=== PATIENT | female | born 1950 | race Caucasian/White ===

== ENCOUNTER 2019-03-18 09:55 | Inpatient (IN) ==
[2019-03-18 10:32] LABS: Bilirubin,Urine Negative (Negative); Blood,Urine Negative (Negative); Clarity,Urine Clear (Clear); Color,Urine Yellow (Yellow); Glucose,Urine (UA) Normal (Normal); Ketones,Urine Negative (Negative); Leukocyte Esterase,Urine Negative (Negative); Nitrite,Urine Negative (Negative); Protein,Urine Negative (Neg-Trace); Specific Gravity,Urine 1.011 (1.010-1.025); Urobilinogen,Urine Normal (Normal)
[2019-03-18 10:35] LABS: Basophils # 0.1 K/mcL (0.0-0.2); Basophils % 1.2 %; Eosinophils # 0.1 K/mcL (0.0-0.6); Eosinophils % 1.8 %; Hematocrit 46.1 % (35.3-44.9); Hemoglobin 14.7 g/dL (11.5-15.4); Immature Granulocytes % 0.4 % (0-4); Lymphocytes # 2.1 K/mcL (0.6-4.6); Lymphocytes % 31.3 %; Mean Corpuscular HGB Conc 31.9 g/dL (31.6-35.5); Mean Corpuscular Hemoglobin 31.5 pg (28.0-33.3); Mean Corpuscular Volume 98.9 fL (83.0-100.0); Mean Platelet Volume 11.4 fL (9.4-12.4); Monocytes # 0.5 K/mcL (0.0-1.3); Monocytes % 6.7 %; Neutrophils # 3.9 K/mcL (1.6-8.9); Platelet Count 349 K/mcL (140-400); Red Blood Count 4.66 M/mcL (3.82-4.97); Red Cell Distribution Width 12.6 % (11.5-14.5); Segmented Neutrophils % 58.6 %; White Blood Count 6.7 K/mcL (4.3-11.1)
[2019-03-18] MEDS ORDERED: Hyoscyamine 0.5 MG/ML MLS IVP ONE (10:37)
[2019-03-18] MEDS ORDERED: *HR* FentaNYL (PF) 100 MCG/2 ML VIAL IVP ONE (10:47)
[2019-03-18] MEDS ORDERED: Ondansetron 4 MG/2 ML VIAL IVP ONE (10:47)
[2019-03-18 10:53] LABS: Alanine Aminotransferase 22 Units/L (7-52); Albumin 4.6 g/dL (3.5-5.7); Albumin/Globulin Ratio 1.5 (1.1-2.2); Alkaline Phosphatase 73 Units/L (34-104); Aspartate Amino Transferase 27 Units/L (13-39); BUN/Creatinine Ratio 14 (6-26); Bilirubin,Direct 0.1 mg/dL (0.0-0.2); Bilirubin,Indirect 0.3 mg/dL (0.0-1.0); Bilirubin,Total 0.4 mg/dL (0.3-1.0); Blood Urea Nitrogen 11 mg/dL (8-23); Calcium 9.8 mg/dL (8.6-10.3); Carbon Dioxide 30 mEq/L (23-29); Chloride 105 mEq/L (98-107); Globulin 3.1 g/dL (2.4-3.5); Glucose 111 mg/dL (70-105); Lipase 24 Units/L (11-82); Osmolality,Calculated 296 (280-300); Potassium 3.7 mEq/L (3.5-5.1); Sodium 143 mEq/L (136-145); Total Protein 7.7 g/dL (6.4-8.9); Troponin I < 0.03 ng/mL (< 0.04); eGFR For African Americans > 60 (> 60); eGFR For Non-African Americans > 60 (> 60)
[2019-03-18] MEDS ORDERED: Loratadine 10 MG TABLET PO PRN (13:15)
[2019-03-18] MEDS ORDERED: NON-FORMULARY MEDICATION 1 EACH EACH (Zolmitriptan [Zomig] 5 MG) PO PRN (13:15)
[2019-03-18] MEDS: Ondansetron 4 MG/2 ML VIAL IVP PRN (13:54)
[2019-03-18] MEDS: Ketorolac 15 MG/ML VIAL IVP PRN ×2 (13:54→20:17)
[2019-03-18] MEDS: Psyllium 1 PACKET POWD.PACK PO SCH ×2 (18:04→20:17)
[2019-03-18] MEDS ORDERED: NON-FORMULARY MEDICATION 1 EACH EACH (Omega-3/Dha/Epa/Fish Oil [Fish Oil 1,000 Mg Softgel] PO SCH (21:00)
[2019-03-19] MEDS: Ketorolac 15 MG/ML VIAL IVP PRN ×2 (01:48→06:47)
[2019-03-19 06:18] LABS: Basophils # 0.1 K/mcL (0.0-0.2); Basophils % 0.9 %; Eosinophils # 0.1 K/mcL (0.0-0.6); Hematocrit 45.5 % (35.3-44.9); Hemoglobin 15.3 g/dL (11.5-15.4); Immature Granulocytes % 0.3 % (0-4); Lymphocytes % 20.8 %; Mean Corpuscular HGB Conc 33.6 g/dL (31.6-35.5); Mean Corpuscular Hemoglobin 31.9 pg (28.0-33.3); Monocytes # 0.6 K/mcL (0.0-1.3); Neutrophils # 6.8 K/mcL (1.6-8.9); Platelet Count 335 K/mcL (140-400); Red Blood Count 4.79 M/mcL (3.82-4.97); Red Cell Distribution Width 12.6 % (11.5-14.5); White Blood Count 9.6 K/mcL (4.3-11.1)
[2019-03-19 06:47] LABS: BUN/Creatinine Ratio 13 (6-26); Blood Urea Nitrogen 12 mg/dL (8-23); Calcium 9.7 mg/dL (8.6-10.3); Carbon Dioxide 27 mEq/L (23-29); Chloride 101 mEq/L (98-107); Glucose 130 mg/dL (70-105); Osmolality,Calculated 292 (280-300); Potassium 4.1 mEq/L (3.5-5.1); Sodium 140 mEq/L (136-145); eGFR For African Americans > 60 (> 60); eGFR For Non-African Americans > 60 (> 60)
[2019-03-19] MEDS ORDERED: Lidocaine Jelly 11 ml Syringe MM STA (07:55)
[2019-03-19] MEDS ORDERED: MAGNESIUM PO SCH (09:00)
[2019-03-19] MEDS ORDERED: NON-FORMULARY MEDICATION 1 EACH EACH (Glucosamine Sulfate Dipot Chlr [Glucosamine] 1,000 M PO SCH (09:00)
[2019-03-19] MEDS ORDERED: MOM Conc 10 ML UD.LIQ PO SCH (09:00)
[2019-03-19] MEDS: Psyllium 1 PACKET POWD.PACK PO SCH ×3 (09:07→19:53)
[2019-03-19] MEDS: Thyroid (Amour) 30 MG TABLET PO SCH (09:07)
[2019-03-19] MEDS: Ondansetron 4 MG/2 ML VIAL IVP PRN (11:21)
[2019-03-19] MEDS: Metoclopramide 10 MG/2 ML VIAL IVP SCH ×3 (11:21→17:54)
[2019-03-19] MEDS: Ringers Solution, Lactated 1,000 ML IVC SCH (17:54)
[2019-03-20] MEDS: Metoclopramide 10 MG/2 ML VIAL IVP SCH ×2 (00:38→05:56)
[2019-03-20] MEDS: Ondansetron 4 MG/2 ML VIAL IVP PRN ×2 (02:05→10:06)
[2019-03-20] MEDS: Ringers Solution, Lactated 1,000 ML IVC SCH ×2 (05:56→20:18)
[2019-03-20] MEDS: Ketorolac 15 MG/ML VIAL IVP PRN ×3 (06:09→20:18)
[2019-03-20] MEDS: Thyroid (Amour) 30 MG TABLET PO SCH (11:55)
[2019-03-20] MEDS: Psyllium 1 PACKET POWD.PACK PO SCH ×3 (11:55→19:15)
[2019-03-20] MEDS ORDERED: *HR* LORazepam 2 MG/ML VIAL ONE (16:29)
[2019-03-20] MEDS ORDERED: *HR* LORazepam 0.5 MG TABLET PO PRN (17:22)
[2019-03-20] MEDS ORDERED: *HR* LORazepam 2 MG/ML VIAL IVP ONE (20:17)
[2019-03-21 05:01] LABS: Basophils % 1.2 %; Eosinophils % 0.3 %; Hematocrit 49.3 % (35.3-44.9); Immature Granulocytes % 0.3 % (0-4); Lymphocytes # 0.8 K/mcL (0.6-4.6); Lymphocytes % 23.4 %; Mean Corpuscular HGB Conc 32.5 g/dL (31.6-35.5); Mean Corpuscular Hemoglobin 31.3 pg (28.0-33.3); Mean Corpuscular Volume 96.3 fL (83.0-100.0); Mean Platelet Volume 11.7 fL (9.4-12.4); Monocytes # 0.5 K/mcL (0.0-1.3); Platelet Count 194 K/mcL (140-400); Red Blood Count 5.12 M/mcL (3.82-4.97); Red Cell Distribution Width 12.9 % (11.5-14.5); Segmented Neutrophils % 58.8 %
[2019-03-21 05:15] LABS: White Blood Count 3.4 K/mcL (4.3-11.1)
[2019-03-21 05:40] LABS: Potassium 4.2 mEq/L (3.5-5.1)
[2019-03-21] MEDS ORDERED: Naloxone 0.4 MG/ML INJ IVP PRN ×2 (07:37→19:53)
[2019-03-21] MEDS ORDERED: Ringers Solution, Lactated 1,000 ML IVC SCH (07:45)
[2019-03-21 08:00] LABS: Bilirubin,Urine Small (Negative); Blood,Urine Negative (Negative); Clarity,Urine Cloudy (Clear); Color,Urine Dark Yellow (Yellow); Glucose,Urine (UA) Normal (Normal); Ketones,Urine Trace mg/dL (Negative); Leukocyte Esterase,Urine Negative (Negative); Nitrite,Urine Negative (Negative); Protein,Urine 30 mg/dL (Neg-Trace); Specific Gravity,Urine > 1.030 (1.010-1.025); Urobilinogen,Urine Normal (Normal)
[2019-03-21 08:03] LABS: Bacteria,Urine None Seen per hpf (None-Few); Squamous Epithelial Cell,Urine Many per lpf (None-Few); WBC,Urine 0-3 per hpf (0-3)
[2019-03-21] MEDS ORDERED: Acetaminophen IV 1,000 MG/100 ML INFUS..BTL IVPB ONE (12:49)
[2019-03-21] MEDS: 0.9 % Sodium Chloride 1,000 ML IVC SCH ×3 (13:13→20:26)
[2019-03-21] MEDS: Ondansetron 4 MG/2 ML VIAL IVP PRN (14:59)
[2019-03-21] MEDS: Piperacillin/Tazobactam 3.375 GM in 0.9 % Sodium Chloride Mini Bag 100 ML IVPB SCH ×2 (15:14→15:15)
[2019-03-21] MEDS ORDERED: *HR* Midazolam HCl 2 MG/2 ML VIAL ONE (16:47)
[2019-03-21] MEDS ORDERED: *HR* Succinylcholine 200 MG/10 ML VIAL IVP ONE (16:47)
[2019-03-21] MEDS ORDERED: *HR* Rocuronium Bromide 50 MG/5 ML VIAL ONE (16:47)
[2019-03-21] MEDS ORDERED: *HR* Propofol 200 MG/20 ML VIAL IVP ONE (16:47)
[2019-03-21] MEDS ORDERED: *HR* FentaNYL (PF) 100 MCG/2 ML VIAL ONE (16:47)
[2019-03-21] MEDS ORDERED: Lidocaine -MPF 2% 2 ML VIAL ONE (16:47)
[2019-03-21] MEDS ORDERED: cefOXitin 1,000 MG, Sodium Chloride IRRigation 1,000 ML IR ONE (17:00)
[2019-03-21] MEDS ORDERED: *HR* OxyCODONE Immed Rel 5 MG TABLET PO PRN (17:12)
[2019-03-21] MEDS ORDERED: *HR* HYDROmorphone (PF) 1 MG/ML SYRINGE IVP PRN (17:12)
[2019-03-21] MEDS ORDERED: CefOXitin 1,000 MG VIAL ONE (17:13)
[2019-03-21] MEDS ORDERED: *HR* PHENYLEPHRINE 1,000 MCG/10 ML SYRINGE IVP ONE (17:39)
[2019-03-21] MEDS ORDERED: Ondansetron 4 MG/2 ML VIAL ONE (18:01)
[2019-03-21] MEDS ORDERED: Dexamethasone 4 MG/ML VIAL ONE (18:01)
[2019-03-21] MEDS ORDERED: Neostigmine Methylsulfate 3 MG/3 ML SYRINGE ONE (18:28)
[2019-03-21] MEDS ORDERED: 0.9 % Sodium Chloride 1,000 ML IVC SCH (19:45)
[2019-03-21] MEDS ORDERED: Ondansetron 4 MG/2 ML VIAL IVP PRN (19:53)
[2019-03-21] MEDS ORDERED: Morphine Sulfate 2 MG/ML SYRINGE IVP PRN (19:53)
[2019-03-21] MEDS: Acetaminophen IV 1,000 MG/100 ML INFUS..BTL IVPB SCH (22:07)
[2019-03-22] MEDS: Piperacillin/Tazobactam 3.375 GM in 0.9 % Sodium Chloride Mini Bag 100 ML IVPB SCH ×3 (00:17→16:58)
[2019-03-22 04:45] LABS: Albumin 4.2 g/dL (3.5-5.7); Albumin/Globulin Ratio 1.2 (1.1-2.2); Bilirubin,Total 0.5 mg/dL (0.3-1.0); Calcium 9.3 mg/dL (8.6-10.3); Globulin 3.5 g/dL (2.4-3.5); Potassium 4.8 mEq/L (3.5-5.1); Total Protein 7.7 g/dL (6.4-8.9)
[2019-03-22] MEDS: Acetaminophen IV 1,000 MG/100 ML INFUS..BTL IVPB SCH ×4 (05:29→23:30)
[2019-03-22] MEDS: 0.9 % Sodium Chloride 1,000 ML IVC SCH ×2 (05:34→18:26)
[2019-03-22 05:52] LABS: Hematocrit 41.8 % (35.3-44.9); Mean Corpuscular HGB Conc 32.3 g/dL (31.6-35.5); Mean Corpuscular Hemoglobin 31.2 pg (28.0-33.3); Mean Corpuscular Volume 96.5 fL (83.0-100.0); Monocytes # 0.4 K/mcL (0.0-1.3); Platelet Count 254 K/mcL (140-400); Red Blood Count 4.33 M/mcL (3.82-4.97); Red Cell Distribution Width 12.5 % (11.5-14.5); White Blood Count 5.3 K/mcL (4.3-11.1)
[2019-03-22 05:54] LABS: Hemoglobin 13.5 g/dL (11.5-15.4)
[2019-03-22 06:12] LABS: Lymphocytes # 0.9 K/mcL (0.6-4.6); Neutrophils # 3.9 K/mcL (1.6-8.9)
[2019-03-22 06:13] LABS: Platelet Estimate Normal (Normal)
[2019-03-22] MEDS: *HR* Heparin 5,000 UNIT/ML VIAL SQ SCH ×2 (06:32→16:57)
[2019-03-22 12:11] LABS: Bilirubin,Urine Negative (Negative); Blood,Urine Negative (Negative); Clarity,Urine Clear (Clear); Color,Urine Yellow (Yellow); Glucose,Urine (UA) Normal (Normal); Ketones,Urine Trace mg/dL (Negative); Leukocyte Esterase,Urine Negative (Negative); Nitrite,Urine Negative (Negative); Protein,Urine 30 mg/dL (Neg-Trace); Specific Gravity,Urine > 1.030 (1.010-1.025); Urobilinogen,Urine Normal (Normal)
[2019-03-22 12:14] LABS: Bacteria,Urine None Seen per hpf (None-Few); Hyaline Casts,Urine Few per lpf (None-Few); Squamous Epithelial Cell,Urine Many per lpf (None-Few); WBC,Urine 0-3 per hpf (0-3)
[2019-03-23] MEDS: Piperacillin/Tazobactam 3.375 GM in 0.9 % Sodium Chloride Mini Bag 100 ML IVPB SCH ×4 (00:30→23:20)
[2019-03-23] MEDS: Chloraseptic Spray 177 ML BOTTLE MM PRN ×2 (00:31→09:39)
[2019-03-23 05:44] LABS: Basophils # 0.1 K/mcL (0.0-0.2); Basophils % 0.8 %; Eosinophils # 0.1 K/mcL (0.0-0.6); Hemoglobin 12.3 g/dL (11.5-15.4); Immature Granulocytes % 1.1 % (0-4); Lymphocytes # 1.5 K/mcL (0.6-4.6); Lymphocytes % 22.7 %; Mean Corpuscular HGB Conc 32.4 g/dL (31.6-35.5); Mean Corpuscular Hemoglobin 31.2 pg (28.0-33.3); Mean Corpuscular Volume 96.4 fL (83.0-100.0); Mean Platelet Volume 11.1 fL (9.4-12.4); Monocytes # 0.7 K/mcL (0.0-1.3); Monocytes % 11.6 %; Platelet Count 264 K/mcL (140-400); Red Blood Count 3.94 M/mcL (3.82-4.97); Red Cell Distribution Width 12.7 % (11.5-14.5); Segmented Neutrophils % 61.8 %; White Blood Count 6.4 K/mcL (4.3-11.1)
[2019-03-23 06:12] LABS: BUN/Creatinine Ratio 51 (6-26); Blood Urea Nitrogen 36 mg/dL (8-23); Calcium 8.3 mg/dL (8.6-10.3); Carbon Dioxide 27 mEq/L (23-29); Chloride 107 mEq/L (98-107); Glucose 102 mg/dL (70-105); Magnesium 2.2 mg/dL (1.6-2.6); Osmolality,Calculated 305 (280-300); Phosphorous 1.5 mg/dL (2.7-4.5); Potassium 3.5 mEq/L (3.5-5.1); Sodium 143 mEq/L (136-145); eGFR For African Americans > 60 (> 60); eGFR For Non-African Americans > 60 (> 60)
[2019-03-23 06:28] LABS: Platelet Estimate Normal (Normal)
[2019-03-23] MEDS: Acetaminophen IV 1,000 MG/100 ML INFUS..BTL IVPB SCH ×4 (06:44→23:18)
[2019-03-23] MEDS: *HR* Heparin 5,000 UNIT/ML VIAL SQ SCH ×2 (06:45→17:34)
[2019-03-23] MEDS: 0.9 % Sodium Chloride 1,000 ML IVC SCH ×3 (07:00→17:47)
[2019-03-23] MEDS ORDERED: D5% in Water 1,000 ML IVC PRN (11:39)
[2019-03-23] MEDS ORDERED: Dextrose Gel 15 GM/37.5 ML TUBE PO PRN ×2 (11:39)
[2019-03-23] MEDS: *HR* Dextrose 50 % in Water (Syg) 50 ML SYRINGE IVP PRN ×2 (12:31→17:33)
[2019-03-24] MEDS: 0.9 % Sodium Chloride 1,000 ML IVC SCH (02:55)
[2019-03-24] MEDS: Acetaminophen IV 1,000 MG/100 ML INFUS..BTL IVPB SCH ×4 (04:53→23:43)
[2019-03-24] MEDS: *HR* Heparin 5,000 UNIT/ML VIAL SQ SCH ×2 (04:53→17:44)
[2019-03-24 05:35] LABS: BUN/Creatinine Ratio 26 (6-26); Blood Urea Nitrogen 15 mg/dL (8-23); Calcium 8.6 mg/dL (8.6-10.3); Carbon Dioxide 22 mEq/L (23-29); Chloride 105 mEq/L (98-107); Glucose 76 mg/dL (70-105); Osmolality,Calculated 290 (280-300); Phosphorous 1.3 mg/dL (2.7-4.5); Potassium 3.3 mEq/L (3.5-5.1); Sodium 140 mEq/L (136-145); eGFR For African Americans > 60 (> 60); eGFR For Non-African Americans > 60 (> 60)
[2019-03-24] MEDS ORDERED: Aminoglycoside Consult 1 EACH MC ONE (07:34)
[2019-03-24] MEDS: Piperacillin/Tazobactam 3.375 GM in 0.9 % Sodium Chloride Mini Bag 100 ML IVPB SCH ×3 (08:55→23:42)
[2019-03-24] MEDS ORDERED: Potassium Phosphate 44 MEQ in 0.9 % Sodium Chloride 250 ML IVPB ONE (15:00)
[2019-03-25 05:27] LABS: Hematocrit 41.6 % (35.3-44.9); Hemoglobin 13.5 g/dL (11.5-15.4); Mean Corpuscular HGB Conc 32.5 g/dL (31.6-35.5); Mean Corpuscular Hemoglobin 30.8 pg (28.0-33.3); Mean Platelet Volume 10.8 fL (9.4-12.4); Platelet Count 312 K/mcL (140-400); Red Blood Count 4.38 M/mcL (3.82-4.97); Red Cell Distribution Width 12.3 % (11.5-14.5)
[2019-03-25] MEDS: Acetaminophen IV 1,000 MG/100 ML INFUS..BTL IVPB SCH ×2 (05:28→12:03)
[2019-03-25] MEDS: *HR* Heparin 5,000 UNIT/ML VIAL SQ SCH ×2 (05:29→18:03)
[2019-03-25] MEDS: 0.9 % Sodium Chloride 1,000 ML IVC SCH (05:29)
[2019-03-25 05:52] LABS: BUN/Creatinine Ratio 13 (6-26); Blood Urea Nitrogen 6 mg/dL (8-23); Calcium 8.6 mg/dL (8.6-10.3); Carbon Dioxide 22 mEq/L (23-29); Chloride 106 mEq/L (98-107); Glucose 96 mg/dL (70-105); Magnesium 1.7 mg/dL (1.6-2.6); Osmolality,Calculated 289 (280-300); Phosphorous 2.3 mg/dL (2.7-4.5); Potassium 3.1 mEq/L (3.5-5.1); Sodium 141 mEq/L (136-145); eGFR For African Americans > 60 (> 60); eGFR For Non-African Americans > 60 (> 60)
[2019-03-25 06:22] LABS: Eosinophils # 0.5 K/mcL (0.0-0.6); Lymphocytes # 2.2 K/mcL (0.6-4.6); Neutrophils # 4.3 K/mcL (1.6-8.9)
[2019-03-25 06:24] LABS: Platelet Estimate Normal (Normal)
[2019-03-25] MEDS: Piperacillin/Tazobactam 3.375 GM in 0.9 % Sodium Chloride Mini Bag 100 ML IVPB SCH (08:35)
[2019-03-25] MEDS: Thyroid (Amour) 30 MG TABLET PO SCH (11:45)
[2019-03-25] MEDS ORDERED: Acetaminophen 325 MG TABLET PO ONE (23:44)
[2019-03-26] MEDS: *HR* Heparin 5,000 UNIT/ML VIAL SQ SCH (05:15)
[2019-03-26 06:14] LABS: Hematocrit 37.3 % (35.3-44.9); Hemoglobin 12.9 g/dL (11.5-15.4); Mean Corpuscular HGB Conc 34.6 g/dL (31.6-35.5); Mean Corpuscular Volume 89.7 fL (83.0-100.0); Platelet Count 354 K/mcL (140-400); Red Blood Count 4.16 M/mcL (3.82-4.97); Red Cell Distribution Width 12.4 % (11.5-14.5); White Blood Count 10.3 K/mcL (4.3-11.1)
[2019-03-26 06:44] VITALS: BP 153/86
[2019-03-26 06:50] LABS: BUN/Creatinine Ratio 8 (6-26); Blood Urea Nitrogen 4 mg/dL (8-23); Calcium 8.7 mg/dL (8.6-10.3); Carbon Dioxide 21 mEq/L (23-29); Chloride 107 mEq/L (98-107); Glucose 149 mg/dL (70-105); Magnesium 1.6 mg/dL (1.6-2.6); Osmolality,Calculated 292 (280-300); Phosphorous 2.8 mg/dL (2.7-4.5); Potassium 3.1 mEq/L (3.5-5.1); Sodium 141 mEq/L (136-145); eGFR For African Americans > 60 (> 60); eGFR For Non-African Americans > 60 (> 60)
[2019-03-26] MEDS: Thyroid (Amour) 30 MG TABLET PO SCH (09:36)
[2019-03-26] MEDS ORDERED: FLU Vac QV 19-20 (6Month+)/PF 0.5 ML SYRINGE IM ONE (11:20)
== END 2019-03-26 14:28 | disposition home or self-care (01) | DRG 329 ==
LOC: 3ANU 09:55 → EMEROOARM 09:55 → SUATTDRO 12:15 → 3ANU 12:45 → SUATTDRO 03-20 18:40
PROVIDERS: ADMIT Internal Medicine; ATTEND Family Medicine